=== PATIENT | male | born 1955 | race Caucasian/White ===

== ENCOUNTER 2020-10-11 21:21 | Inpatient (IN) | payer MEDICARE, OTHER ==
[~2020-10-11] VITALS: Ht 182.9 cm; Wt 97.2 kg
[~2020-10-11 21:21] MED LIST: AMLODIPINE BESY10 MG PO; AMOX TR-K CLV1 EAC3 PO; DULERA 100 MCG8.8 GM INH; GABAPENTIN400 MG PO; LEVAQUIN750 MG PO; LISINOPRIL-HCT1 EAC1 PO; MAG-OXIDE 400M400 MG PO; PREDNISONE 20MG20 MG PO; ROPINIROLE HCL1 MG PO; SIMVASTATIN20 MG PO; TAMIFLU 75MG CA75 MG PO; TRAZODONE 150M150 MG PO; VENTOLIN (2.5 MG/3 M INH; XOPENEX (11.25 MG/3 NEB
[2020-10-11 21:49] LABS: BASOPHIL 0.6 % (0-2); HGB 17.8 g/dl (13.2-18.0); LYMPHOCYTE 14.8 % (15-48); MCH 30.5 pg (25.0-31.0); MCHC 30.7 g/dL (32.0-36.0); MCV 99.3 fL (78.0-100.0); MONOCYTE 8.3 % (0-12); MPV 11.3 fL (6.0-9.5); NRBC 0; PLT 166 K/uL (150-400); RBC 5.84 M/uL (4.70-6.00); RDW 13.1 % (11.5-14.0); WBC 11.5 K/uL (4.0-10.5)
[2020-10-11 21:57] LABS: INR 1.05 (0.9-1.2)
[2020-10-11 21:58] LABS: PTT 30.6 SECONDS (22.2-34.7)
[2020-10-11 21:59] LABS: D-DIMER 0.64 ug/mLFEU (0.00-0.41)
[2020-10-11 22:08] LABS: IRON % SATURATION 16.7 %SAT (20-50)
[2020-10-11 22:11] LABS: LACTIC ACID 1.4 mmol/L (0.4-1.9)
[2020-10-11 22:14] LABS: ALBUMIN 3.6 g/dL (3.4-5.0); BILIRUBIN - TOTAL 0.4 mg/dL (0.2-1.0); C-REACTIVE PROTEIN 1.3 mg/dL (<=0.90); CREATININE 1.32 mg/dL (0.67-1.17); GLOBULIN (CALCULATION) 3.8 g/dL; PRO-BNP 59 pg/mL (<125); TOTAL PROTEIN 7.4 g/dL (6.4-8.2)
[2020-10-11 22:15] LABS: POTASSIUM 5.2 mmol/L (3.5-5.1)
[2020-10-11 22:40] LABS: CORONAVIRUS 2019 SARS-COV-2 NEGATIVE (NEGATIVE); INFLUENZA A NAA NEGATIVE (NEGATIVE)
[2020-10-12 05:45] LABS: BASOPHIL 0.4 % (0-2); EOSINOPHIL 0 % (0-7); HCT 52.6 % (42.0-52.0); HGB 16.1 g/dl (13.2-18.0); LYMPHOCYTE 11.7 % (15-48); MCH 30.9 pg (25.0-31.0); MCHC 30.6 g/dL (32.0-36.0); MPV 11.6 fL (6.0-9.5); NEUTROPHIL 85.4 % (41-80); NRBC 0; PLT 118 K/uL (150-400); RBC 5.21 M/uL (4.70-6.00); RDW 13.2 % (11.5-14.0); WBC 8.1 K/uL (4.0-10.5)
[2020-10-12 06:10] LABS: ALBUMIN 2.9 g/dL (3.4-5.0); BILIRUBIN - TOTAL 0.4 mg/dL (0.2-1.0); BUN/CREAT RATIO (CALC) 21.5 RATIO; CREATININE 1.58 mg/dL (0.67-1.17); GLOBULIN (CALCULATION) 2.9 g/dL; POTASSIUM 5.8 mmol/L (3.5-5.1); TOTAL PROTEIN 5.8 g/dL (6.4-8.2)
[2020-10-12 07:36] LABS: MAGNESIUM 2.2 mg/dL (1.8-2.4); POTASSIUM 6.2 mmol/L (3.5-5.1)
[2020-10-12] MEDS ORDERED: NEURONTIN400 MG PO (09:59)
[2020-10-12] MEDS ORDERED: ZOCOR20 MG PO (09:59)
[2020-10-12] MEDS ORDERED: NORVASC5 MG PO (10:00)
[2020-10-12] MEDS ORDERED: TOPROL XL 50 MG50 MG PO (10:01)
[2020-10-12] MEDS ORDERED: METFORMIN HCL500 MG PO (10:02)
[2020-10-12] MEDS ORDERED: MAG-OXIDE 400M400 MG PO (10:03)
[2020-10-12] MEDS ORDERED: CHLORTHALIDONE25 MG PO (10:04)
[2020-10-12] MEDS ORDERED: VENTOLIN (2.5 MG/3 M INH (10:06)
[2020-10-12] MEDS ORDERED: TESTOSTERO200 MG/1 M IJ (11:19)
[2020-10-12] MEDS ORDERED: LISINOPRIL-HCT1 EAC1 PO (11:26)
[2020-10-12 12:53] LABS: BUN/CREAT RATIO (CALC) 23.5 RATIO; CREATININE 1.32 mg/dL (0.67-1.17); POTASSIUM 5.2 mmol/L (3.5-5.1)
[2020-10-12 13:50] LABS: BILIRUBIN NEGATIVE (NEGATIVE); BLOOD NEGATIVE Ery/uL (NEGATIVE); CLARITY CLEAR (CLEAR); COLOR YELLOW (YELLOW); GLUCOSE (U) 2+ mg/dL (NORMAL); LEUKOCYTES NEGATIVE Leu/uL (NEGATIVE); NITRITE NEGATIVE (NEGATIVE); PROTEIN 1+ mg/dL (NEGATIVE); UROBILINOGEN 0.2 mg/dL (0.2-1.0); pH 5.5 (5.0-9.0)
[2020-10-12 13:59] LABS: BACTERIA TRACE; URINARY RBC RARE
--- NOTE | 2020-10-12 13:59 | NUR ---
MET WITH PT. TO DISCUSS HH SERVICES. PT. REFUSES TO HAVE HH. PT. HAS A POWER WHEELCHAIR, ROLLATOR AND ROLLING WALKER. PT. DOES HAVE HOME O2 AND HIS TRAVEL TANK IS AT THE HOSPITAL. HIS SISTER AND GIRLFRIEND HELP WITH THE HOUSEKEEPING AND MEALS. ADVISED NURSEBEENA THAT PT. IS NOT INTERESTED IN HH. PLAN IS TO RETURN HOME WHEN DISCHARGED.
[2020-10-13 05:00] LABS: BASOPHIL 0.1 % (0-2); EOSINOPHIL 0 % (0-7); HCT 52.3 % (42.0-52.0); HGB 15.8 g/dl (13.2-18.0); LYMPHOCYTE 7.2 % (15-48); MCH 30.7 pg (25.0-31.0); MCHC 30.2 g/dL (32.0-36.0); MCV 101.8 fL (78.0-100.0); MONOCYTE 4.6 % (0-12); MPV 11.5 fL (6.0-9.5); NEUTROPHIL 87.1 % (41-80); NRBC 0; PLT 134 K/uL (150-400); RBC 5.14 M/uL (4.70-6.00); RDW 12.8 % (11.5-14.0); WBC 8.1 K/uL (4.0-10.5)
[2020-10-13 05:05] LABS: BUN/CREAT RATIO (CALC) 20.4 RATIO; CREATININE 1.13 mg/dL (0.67-1.17); MAGNESIUM 2.1 mg/dL (1.8-2.4); POTASSIUM 4.9 mmol/L (3.5-5.1)
[2020-10-15 06:22] LABS: BASOPHIL 0.2 % (0-2); EOSINOPHIL 0 % (0-7); HCT 51.5 % (42.0-52.0); HGB 16.2 g/dl (13.2-18.0); LYMPHOCYTE 17.1 % (15-48); MCH 30.7 pg (25.0-31.0); MCHC 31.5 g/dL (32.0-36.0); MCV 97.5 fL (78.0-100.0); MONOCYTE 10.8 % (0-12); NEUTROPHIL 70.9 % (41-80); NRBC 0; PLT 142 K/uL (150-400); RBC 5.28 M/uL (4.70-6.00)
[2020-10-15 07:14] LABS: ALBUMIN 2.9 g/dL (3.4-5.0); BILIRUBIN - TOTAL 0.4 mg/dL (0.2-1.0); BUN/CREAT RATIO (CALC) 18.8 RATIO; CREATININE 1.01 mg/dL (0.67-1.17); GLOBULIN (CALCULATION) 2.8 g/dL; MAGNESIUM 1.9 mg/dL (1.8-2.4); POTASSIUM 3.7 mmol/L (3.5-5.1); TOTAL PROTEIN 5.7 g/dL (6.4-8.2)
[2020-10-15] MEDS ORDERED: SINGULAIR10 MG PO (12:15)
[2020-10-15] MEDS ORDERED: DULERA 200 MCG8.8 GM INH (12:15)
[2020-10-15] MEDS ORDERED: AUGMENTIN 875-1 EACH PO (12:15)
--- NOTE | 2020-10-15 14:34 | NUR ---
PT DC'd HOME FROM THE [facility] @ 1430. ESCORTED TO HOSPITAL FRONT ENTRANCE VIA WHEELCHAIR W/ ALL BELONGINGS & D/C PACKET BY JOEY; UNIT SPACE OPERATIONS VS STABLE; NO COMPLICATIONS PT PICKED UP BY FRIEND VIA PRIVATE VEHICLE
== END 2020-10-15 14:30 | disposition home or self-care (01) | DRG 871 ==
LOC: FER 21:21 → FICU 10-12 00:20 → FTCU 10-13 17:38
PROVIDERS: Emergency Medicine; Nurse Practitioner; ADMIT Internal Medicine
DX: A41.9 Sepsis, unspecified organism (principal); J18.9 Pneumonia, unspecified organism; J96.21 Acute and chronic respiratory failure with hypoxia; J96.22 Acute and chronic respiratory failure with hypercapnia; J44.1 Chronic obstructive pulmonary disease with (acute) exacerbation; J44.0 Chronic obstructive pulmonary disease with (acute) lower respiratory infection; E11.9 Type 2 diabetes mellitus without complications; Z91.19 Patient's noncompliance with other medical treatment and regimen; Z66 Do not resuscitate; R91.8 Other nonspecific abnormal finding of lung field; Z20.822 Contact with and (suspected) exposure to COVID-19; G25.81 Restless legs syndrome; M19.90 Unspecified osteoarthritis, unspecified site; E78.5 Hyperlipidemia, unspecified; Z99.81 Dependence on supplemental oxygen; Z98.890 Other specified postprocedural states; Z87.891 Personal history of nicotine dependence; Z79.84 Long term (current) use of oral hypoglycemic drugs; Z79.899 Other long term (current) drug therapy
CPT/HCPCS: 36415; 36600; 71045; 71250; 80048; 80053; 81001; 82550; 82607; 82803; 82962; 83540; 83550; 83605; 83615; 83735; 83880; 84132; 84145; 84443; 84484; 85025; 85379; 85610; 85730; 86140; 87040; 93005; 94640; 94660; 94667; 94668; 97162; 97166; 97530-GP; 97535; J0456; J0610; J1650; J2543; J2930; J3370; J7030; J7050; U0002

== ENCOUNTER 2020-10-17 09:08 | Emergency (ER) | payer MEDICARE, OTHER ==
[~2020-10-17 09:08] MED LIST changes: +AUGMENTIN 875-1 EACH PO; +CHLORTHALIDONE25 MG PO; +DULERA 200 MCG8.8 GM INH; +METFORMIN HCL500 MG PO; +NEURONTIN400 MG PO; +NORVASC5 MG PO; +SINGULAIR10 MG PO; +TESTOSTERO200 MG/1 M IJ; +TOPROL XL 50 MG50 MG PO; +ZOCOR20 MG PO
[2020-10-17 09:43] LABS: BASOPHIL 0.7 % (0-2); EOSINOPHIL 0.9 % (0-7); HCT 56.7 % (42.0-52.0); HGB 18.1 g/dl (13.2-18.0); LYMPHOCYTE 17.6 % (15-48); MCH 30.7 pg (25.0-31.0); MCHC 31.9 g/dL (32.0-36.0); MCV 96.1 fL (78.0-100.0); MONOCYTE 10.6 % (0-12); NEUTROPHIL 68.3 % (41-80); NRBC 0; PLT 167 K/uL (150-400); RDW 13.1 % (11.5-14.0); WBC 11.7 K/uL (4.0-10.5)
[2020-10-17 10:10] LABS: CREATININE 1.25 mg/dL (0.67-1.17)
[2020-10-17 10:22] LABS: CKMB 2.9 ng/mL (0.0-3.6)
[2021-03-29] MEDS ORDERED: OXYGEN (12:42)
[2021-03-29] MEDS ORDERED: ALBUTEROL0.5 ML/AMP INH (13:39)
[2021-04-05] MEDS ORDERED: ULTRAM50 MG PO (13:59)
[2021-04-05] MEDS ORDERED: ACETAMINOPHEN500 M1 PO (13:59)
[2021-04-05] MEDS ORDERED: MOTRIN600 MG PO (13:59)
== END 2020-10-17 11:10 | disposition home or self-care (01) ==
LOC: FER 09:08
PROVIDERS: Emergency Medicine
DX: I25.10 Atherosclerotic heart disease of native coronary artery without angina pectoris (principal); J44.9 Chronic obstructive pulmonary disease, unspecified; I49.1 Atrial premature depolarization; E11.9 Type 2 diabetes mellitus without complications
CPT/HCPCS: 36415; 71046; 80048; 82553; 83880; 84484; 85025; 93005

== ENCOUNTER → 2021-04-05 | Day surgery (SDC) | payer MEDICARE, OTHER ==
[~2021-04-05] VITALS: Ht 175.3 cm; Wt 105.3 kg
[~2021-04-05] MED LIST changes: +ACETAMINOPHEN500 M1 PO; +ALBUTEROL0.5 ML/AMP INH; +MOTRIN600 MG PO; +OXYGEN; +ULTRAM50 MG PO
[2021-04-05 12:10] LABS: BUN/CREAT RATIO (CALC) 18.4 RATIO; CREATININE 0.98 mg/dL (0.67-1.17); POTASSIUM 4.7 mmol/L (3.5-5.1)
== END | disposition home or self-care (01) ==
LOC: FAS 10:47
PROVIDERS: Anesthesiology
DX: C34.92 Malignant neoplasm of unspecified part of left bronchus or lung (principal); J44.9 Chronic obstructive pulmonary disease, unspecified; I11.0 Hypertensive heart disease with heart failure; I50.9 Heart failure, unspecified; E11.42 Type 2 diabetes mellitus with diabetic polyneuropathy; M19.90 Unspecified osteoarthritis, unspecified site; N40.1 Benign prostatic hyperplasia with lower urinary tract symptoms; R39.16 Straining to void; E78.00 Pure hypercholesterolemia, unspecified; G25.81 Restless legs syndrome; Z99.81 Dependence on supplemental oxygen; Z87.891 Personal history of nicotine dependence; Z79.84 Long term (current) use of oral hypoglycemic drugs; Z79.899 Other long term (current) drug therapy
CPT/HCPCS: 36415; 71045; 76000; 80048; C1788; J0690; J1644; J2001; J2250; J7120

== ENCOUNTER 2021-04-27 12:02 | Emergency (ER) | payer MEDICARE, OTHER ==
[2021-04-27 12:39] LABS: BASOPHIL 0.2 % (0-2); EOSINOPHIL 0.2 % (0-7); HCT 54.8 % (42.0-52.0); HGB 16.4 g/dl (13.2-18.0); LYMPHOCYTE 19.9 % (15-48); MCH 29.9 pg (25.0-31.0); MCHC 29.9 g/dL (32.0-36.0); MCV 99.8 fL (78.0-100.0); MONOCYTE 6.4 % (0-12); MPV 11.4 fL (6.0-9.5); NEUTROPHIL 72.8 % (41-80); NRBC 0; PLT 138 K/uL (150-400); RBC 5.49 M/uL (4.70-6.00); RDW 14.9 % (11.5-14.0); WBC 4.4 K/uL (4.0-10.5)
[2021-04-27 12:54] LABS: ALBUMIN 3.5 g/dL (3.4-5.0); BILIRUBIN - TOTAL 0.7 mg/dL (0.2-1.0); BUN/CREAT RATIO (CALC) 18.2 RATIO; CREATININE 1.21 mg/dL (0.67-1.17); GLOBULIN (CALCULATION) 3.1 g/dL; POTASSIUM 4.8 mmol/L (3.5-5.1); TOTAL PROTEIN 6.6 g/dL (6.4-8.2)
[2021-04-27 12:55] LABS: PRO-BNP 160 pg/mL (<125)
[2021-04-27 14:17] LABS: CORONAVIRUS 2019 SARS-COV-2 NEGATIVE (NEGATIVE); INFLUENZA A NAA NEGATIVE (NEGATIVE)
[2021-04-27] MEDS ORDERED: PREDNISONE 20MG20 MG PO (15:14)
[2021-04-27] MEDS ORDERED: VIBRAMYCIN100 MG PO (15:14)
== END 2021-04-27 15:58 | disposition home or self-care (01) ==
LOC: FER 12:02
PROVIDERS: Internal Medicine
DX: J44.1 Chronic obstructive pulmonary disease with (acute) exacerbation (principal); E11.22 Type 2 diabetes mellitus with diabetic chronic kidney disease; C34.90 Malignant neoplasm of unspecified part of unspecified bronchus or lung; Z20.822 Contact with and (suspected) exposure to COVID-19; E78.5 Hyperlipidemia, unspecified; N17.9 Acute kidney failure, unspecified; N18.9 Chronic kidney disease, unspecified
CPT/HCPCS: 36415; 71045; 80053; 83605; 83880; 84145; 84484; 85025; 85379; 93005; 94640; J7040; J7512; U0002

== ENCOUNTER 2021-07-14 06:44 | Emergency (ER) | payer MEDICARE, OTHER ==
[~2021-07-14 06:44] MED LIST changes: +VIBRAMYCIN100 MG PO
[2021-07-14 08:06] LABS: BASOPHIL 0.5 % (0-2); EOSINOPHIL 2.9 % (0-7); HCT 41.9 % (42.0-52.0); HGB 13.2 g/dl (13.2-18.0); LYMPHOCYTE 8.7 % (15-48); MCH 32.8 pg (25.0-31.0); MCHC 31.5 g/dL (32.0-36.0); MCV 104.2 fL (78.0-100.0); MONOCYTE 16.1 % (0-12); MPV 10.5 fL (6.0-9.5); NEUTROPHIL 70.4 % (41-80); NRBC 0; PLT 128 K/uL (150-400); RBC 4.02 M/uL (4.70-6.00); RDW 15.6 % (11.5-14.0); WBC 6.5 K/uL (4.0-10.5)
[2021-07-14 08:21] LABS: ALBUMIN 3.3 g/dL (3.4-5.0); BILIRUBIN - TOTAL 0.5 mg/dL (0.2-1.0); BUN/CREAT RATIO (CALC) 21.9 RATIO; CREATININE 1.83 mg/dL (0.67-1.17); GLOBULIN (CALCULATION) 3.6 g/dL; POTASSIUM 4.9 mmol/L (3.5-5.1); TOTAL PROTEIN 6.9 g/dL (6.4-8.2)
[2021-07-14 09:33] LABS: CORONAVIRUS 2019 SARS-COV-2 NEGATIVE (NEGATIVE); INFLUENZA A NAA NEGATIVE (NEGATIVE)
[2021-07-14] MEDS ORDERED: CEFDINIR300 MG PO ×2 (12:17→12:18)
[2021-07-14] MEDS ORDERED: VIBRAMYCIN100 MG PO ×2 (12:17→12:18)
== END 2021-07-14 13:15 | disposition home or self-care (01) ==
LOC: FER 06:44
PROVIDERS: Emergency Medicine
DX: J44.0 Chronic obstructive pulmonary disease with (acute) lower respiratory infection (principal); J18.9 Pneumonia, unspecified organism; J44.1 Chronic obstructive pulmonary disease with (acute) exacerbation; E11.9 Type 2 diabetes mellitus without complications; Z20.822 Contact with and (suspected) exposure to COVID-19
CPT/HCPCS: 36415; 36600; 71045; 71250; 80053; 82803; 84145; 85025; 87040; J2543; U0002